=== PATIENT | female | born 1975 | race Two or more races ===

== ENCOUNTER 2017-08-20 09:36 | Outpatient (CLI) | payer OTHER | END 2017-08-20 09:44 | disposition home or self-care (01) | LOC: MAMO-SONO 09:36 | DX: N60.11 Diffuse cystic mastopathy of right breast (principal); N60.12 Diffuse cystic mastopathy of left breast; N64.4 Mastodynia; Z12.31 Encounter for screening mammogram for malignant neoplasm of breast ==